=== PATIENT | male | born 1965 | race Caucasian/White ===

== ENCOUNTER 2019-06-08 20:57 | Emergency (ER) | payer OTHER ==
[~2019-06-08 20:57] MED LIST: THIAMINE 100 MG TAB PO SCH
[2019-06-08 21:16] VITALS: RESP 18; TEMP 99.7
[2019-06-08] MEDS ORDERED: LORazepam 2 MG/ML INJ IV PRN ×3 (21:21)
[2019-06-08] MEDS ORDERED: THIAMINE 100 MG/ML 2 ML VIAL IM STA (21:21)
[2019-06-08 21:41] LABS: Basophils # (A) 0.1 k/uL (0-0.2); Basophils % (A) 1 %; Eosinophils # (A) 0.1 k/uL (0-0.7); Eosinophils % (A) 2 %; HCT 49.4 % (39.0-53.0); Lymphocytes # (A) 2.2 k/uL (1.0-4.8); Lymphocytes % (A) 34 %; MCH 34.4 pg (25.0-35.0); MCHC 34.3 g/dL (31.0-37.0); Mean Platelet Volume 7.6; Monocytes # (A) 0.5 k/uL (0-1.0); Monocytes % (A) 8 %; Neutrophils # (A) 3.3 k/uL (1.3-7.7); Neutrophils % (A) 52 %; Platelet Count 207 k/uL (150-450); RBC 4.94 m/uL (4.30-5.90); RDW 13.2 % (11.5-15.5); WBC 6.4 k/uL (3.8-10.6)
[2019-06-08 21:42] LABS: Appearance,Urine Clear (Clear); Bilirubin,Urine Negative (Negative); Blood,Urine Negative (Negative); Color,Urine Yellow; Glucose,Urine (UA) Negative (Negative); Ketones,Urine Negative (Negative); Leukocyte Esterase,Urine Negative (Negative); Nitrite,Urine Negative (Negative); PH, Urine 5.5 (5.0-8.0); Protein,Urine Negative (Negative); Specific Gravity,Urine 1.004 (1.001-1.035); Urobilinogen,Urine <2.0 mg/dL (<2.0)
[2019-06-08 21:51] LABS: ALT 17 U/L (4-49); AST 31 U/L (17-59); African American GFR (CKD) >90 (>60 ml/min/1.73 sqM); Albumin 4.2 g/dL (3.5-5.0); Alkaline Phosphatase 122 U/L (38-126); Anion Gap 9 mmol/L; Blood Urea Nitrogen 5 mg/dL (9-20); Calcium 8.5 mg/dL (8.4-10.2); Carbon Dioxide 28 mmol/L (22-30); Chloride 104 mmol/L (98-107); Glucose 99 mg/dL (74-99); Magnesium 2.3 mg/dL (1.6-2.3); Non-African American GFR(CKD) >90 (>60 ml/min/1.73 sqM); Phosphorus 3.5 mg/dL (2.5-4.5); Potassium 4.1 mmol/L (3.5-5.1); Sodium 141 mmol/L (137-145); Total Bilirubin 1.2 mg/dL (0.2-1.3); Total Protein 7.6 g/dL (6.3-8.2)
[2019-06-08 21:53] LABS: Alcohol 292 mg/dL
[2019-06-08 22:01] LABS: Amphetamine Screen,Urine Not Detected (NotDetected); Barbiturate Screen,Urine Not Detected (NotDetected); Benzodiazepines Screen,Urine Not Detected (NotDetected); Cocaine Screen,Urine Not Detected (NotDetected); Methadone Screen, Urine Not Detected (NotDetected); Opiate Screen,Urine Not Detected (NotDetected); Oxycodone Screen, Urine Not Detected (NotDetected); Phencyclidine Screen,Urine Not Detected (NotDetected); Tricyclic Antidepressant,Urine Not Detected (NotDetected); Urn Cannabinoid Scrn Detected (NotDetected)
--- NOTE | 2019-06-08 22:02 | XR ---
EXAMINATION TYPE: XR chest 2V DATE OF EXAM: 06/08/2019 COMPARISON: None HISTORY: 54-year-old male with fall and pain TECHNIQUE: AP and lateral views FINDINGS: Heart normal size. Aorta and pulmonary vasculature within normal limits. Mild interstitial prominence as a chronic appearance. No consolidation, pneumothorax, or pleural effusion. There is elevation of the distal right clavicle in relation to the acromion. IMPRESSION: 1. Chronic appearing changes. No definite acute process seen. 2. Offset at the right AC joint suggests age indeterminate AC joint injury. Correlate for any focal p ain here.
[2019-06-08 22:03] VITALS: BP 149/94; PULSE 77
--- NOTE | 2019-06-08 22:07 | CT ---
EXAMINATION TYPE: CT brain destiny mascorro con DATE OF EXAM: 06/08/2019 COMPARISON: None HISTORY: 54-year-old male weakness, history of fall, EtOH. Family hx stroke. CT DLP: 1485.6 mGycm Automated exposure control for dose reduction was used. Technique: Examination of the head was done in axial plane without intravenous contrast. Coronal and sagittal reconstructions performed. CT of the cervical spine was obtained in axial plane without intravenous injection of contrast mater ial. Coronal and sagittal reformatted images were obtained from the axial views for evaluation of f ractures, spinal alignment and canal. FINDINGS: Head: There is no evidence of acute intracranial hemorrhage, acute ischemic changes, mass, mass-effect, or extra-axial fluid collection. There is no effacement of cerebral sulci or basal subarachnoid cister ns. There is no hydrocephalus. There is no midline shift. Kumari-white matter distinction is preserv ed. Mild mucosal thickening ethmoid air cells. Orbits and globes appear intact. Mastoid air cells are wel l pneumatized. Cervical spine: 1.5 cm cyst right maxilla likely a dentigerous cyst. This can be correlated with a dental exam. No cr anial cervical junction abnormality, predental space widening, or prevertebral soft tissue swelling. Congenital vertebral body fusion of C6/C7. No acute fracture. Alignment is maintained and there is straightening of the normal cervical lordosis . Mild multilevel degenerative disc disease. Hypertrophic facet arthropathy and uncovertebral joint art hropathy throughout.. Suspected levels of mild spinal canal narrowing throughout. Assessment of the spinal canal from C5 an d below is limited due to artifact from patient's shoulders. Mild left neural foraminal stenosis at C2-C3, both sides at C3-C4, moderate to severe left and C4-C5 and on the right and C5-C6. Old healed left midclavicular shaft fracture deformity Sagittal and coronal reformatted images confirm above findings. COMBINED IMPRESSION: 1. No acute intracranial abnormality seen. 2. No acute fracture or malalignment of the cervical spine. Moderate spondylotic change. Congenital v ertebral body fusion at C6/C7. Variable neural foraminal stenoses as outlined above. 3. A 1.5 cm cystic lesion of the right maxilla, likely a dentigerous cyst which can be correlated wit h a dental exam.
--- NOTE | 2019-06-08 22:08 | XR ---
EXAMINATION TYPE: XR lumbar spine 2 or 3V DATE OF EXAM: 06/08/2019 COMPARISON: NONE HISTORY: Low back pain TECHNIQUE: 3 views FINDINGS: Vertebra have normal alignment. There is narrowing at L5-S1 disc with spurring and sclerosi s. The other disc spaces are fairly normal. Posterior elements are intact. There is some sclerosis at the left sacroiliac joint. There is no compression fracture. IMPRESSION: Spondylosis at L5-S1. There is sclerosis at the sacroiliac joints more on the left side t hat could relate to some sacroiliitis.
--- NOTE | 2019-06-08 22:10 | XR ---
EXAMINATION TYPE: XR wrist complete BILATERAL DATE OF EXAM: 06/08/2019 COMPARISON: NONE HISTORY: 54-year-old male with fall and bilateral wrist pain TECHNIQUE: 4 views each side FINDINGS: A corticated ossific density adjacent to the right ulnar styloid process. This could represent a mission support specialist sylw[place] nonunited fracture fragment from remote injury or accessory ossicle. Faint TFC calcifications on the left. The radiocarpal and distal radioulnar joints as well as the midcarpal compartment appear in tact on both sides. No acute fracture, subluxation, or dislocation seen. Mild soft tissue swelling at the left wrist. IMPRESSION: Mild soft tissue swelling at the left wrist. No acute osseous abnormality seen.
--- NOTE | 2019-06-08 22:13 | ED ---
Extremity Problem HPI - General Chief complaint: Extremity Problem,Nontraumatic Stated complaint: etoh,hypertension Time Seen by Provider: 06/08/19 21:03 Source: patient, family, EMS Mode of arrival: EMS Limitations: no limitations - History of Present Illness Initial comments: 54yo male with history of daily ETOH abuse, HTN presenting today for cc of b ilateral wrist pain. Patient states that he has had pain the hands today, he states he has family history of stroke and is not sure if this is a sign. Family member has also noted tremor of the UE, beside denies slurred speech. Patient states he did trip today but denies hitting head, SMYTH, nausea, vomiting, neck pain, or back pain. Patient denies trauma to the hands, the states he "knows theyre not broken". Patient states he has "felt like shit" for months, denies any specific symptoms. Denies chest pain or SOB. Patient denies visual changes. Patient states at time he has pain in his right leg. Patient denies any weakness or loss of sensation of the UE or LE. States he has known degenerative changes of the neck. Patient states he presented today for the pain of wrist/hands. States the wrist pain has been ongoing for months and the pain in the knuckle has been ongoing for the past day. Patient states when he bends at all 5 knuckles of the hands b/l it hurts, but is not weak. Remaining ROS (-). Upon arrival patient is AAOx3 does not appears acute intoxicated, but does smell of alcohol. beside. - Related Data Allergies Allergy/AdvReac Type Severity Reaction Status Date / Time No Known Allergies Allergy Verified 06/08/19 22:00 Review of Systems ROS Statement: Those systems with pertinent positive or pertinent negative responses have been documented in the HPI. ROS Other: All systems not noted in ROS Statement are negative. Past Medical History Past Medical History: COPD, Hypertension History of Any Multi-Drug Resistant Organisms: None Reported Past Surgical History: Hernia Repair, Orthopedic Surgery Additional Past Surgical History / Comment(s): L ankle surgery, testicular torsion 2014 Past Psychological History: No Psychological Hx Reported Smoking Status: Current every day smoker Past Alcohol Use History: Abuse Past Drug Use History: Marijuana General Exam - General Exam Comments Initial Comments: General: The patient is awake and alert, in no distress, and does not appear acutely ill. Smells of alcohol Eye: +3 mm pupils are equal, round and reactive to light, extra-ocular movements are intact. No nystagmus. There is normal conjunctiva bilaterally. No signs of icterus. Ears, nose, mouth and throat: There are moist mucous membranes and no oral lesions. rhinophyma noted. Neck: The neck is supple, there is no tenderness or JVD. No midline or paraspinal tenderness to palpation. Full ROM without tenderness of the cervical spine. Cardiovascular: There is a regular rate and rhythm. No murmur, rub or gallop is appreciated. Respiratory: Lungs are clear to auscultation, respirations are non-labored, breath sounds are equal. No wheezes, stridor, rales, or rhonchi. Gastrointestinal: Soft, non-distended, non-tender abdomen without masses or organomegaly noted. There is no rebound or guarding present. No CVA tenderness. Bowel sounds are unremarkable. Musculoskeletal: Normal ROM, no tenderness of the UE and LE b/l however there is pain at the MCP joints of all 5 digits of the hands b/l no swelling, no abrasions, . Strength 5/5 of the UE and LE b/l. Sensation intact of the UE and LE b/l. Radial pulses equal bilaterally 2+. No LE edema. No swelling of the hands. Neurological: A&O x 3. CN II-XII intact, memory intact to immediately, i ntermediate and intermediate project manager recall. Able to follow simple verbal. Able to name a common object. High quality, labial (pa) and lingual (la) speech. Low quality posterior pharynx/larynx (ga) voice sounds. Able to express general knowledge (days in a week). No hemineglect or inattention noted. Finger agnosia (-) and spatially oriented (identified L index finger touched R shoulder with L index finger). . Light touch sensation present over the face, chest, abdomen, back, UE bilaterally, and LE bilaterally. Able to localize point during point localization b/l and extinction. No visible bulk atrophy, hypertrophy, fasciculations, or myoclonus of the UE or LE b/l. Full PROM in UE and LE b/l. Bilateral muscle strength 5/5 for the following muscles: deltoid, biceps, triceps, brachioradialis, wrist extensors/flexor, hip flexor, hip abductors/adductors, hamstrings, quadriceps, feet dorsiflexors/plantar flexors. Finger to nose, finger to the examiners finger, and heel to masters coordinated and accurate b/l. Coordinated and even demonstration of hand flip. Gait is coordinated and even in stride. (-) pronator drift. No nuchal rigidity. Psychiatric: Cooperative, appropriate mood & affect, normal judgment. Limitations: no limitations Course Vital Signs 06/08/19 06/08/19 06/08/19 21:00 21:20 22:03 Temperature 99.7 F H 99.7 F H Pulse Rate 85 77 Respiratory 18 18 Rate Blood Pressure 142/100 149/94 O2 Sat by Pulse 97 95 Oximetry - Reevaluation(s) Reevaluation #1: Refused XR of hands, initially xr of wrists was obtained, patient was not complaining of hand pain. states she just wants to take him home. Refuses XR of hand. 06/08/19 Medical Decision Making - Medical Decision Making 54yo male presenting for complaints of b/l hand and wrist pain. Does no appear overtly intoxicated but smell of alcohol. Patient neurovascularly intact on examination. No focal neurological deficits. Patient labs stable no electrolyte derrangements. Patient has known cervical disease, states he did trip today but adamantly denies head injury. states she doesnt believe he has. Patient has no evidence of head trauma on exam. There is noted rhinophyma. Patient blood alcohol elevated, states this is his typical states-daily drinker. After imaging studies revealed no acute process (the right shoulder is an old collar bone injury no new trauma) nor laboratory studies that they would both like to go home. Patient beside removed IV, patient put clothes on and began to leave. Troponin results (-) Pt denied chest pain SOB. After discussing case and reviewing EKG with attending we feel patient is stable for discharge with PCP f/u as discussed as well as return parameters. Patient verbalized understanding and patient discharged appearing well. - Lab Data Result diagrams: 06/08/19 21:30 06/08/19 21:30 Lab Results 06/08/19 06/08/19 06/08/19 Range/Units 21:30 21:30 21:30 WBC 6.4 (3.8-10.6) k/uL RBC 4.94 (4.30-5.90) m/uL Hgb 17.0 (13.0-17.5) gm/dL Hct 49.4 (39.0-53.0) % MCV 100.0 (80.0-100.0) fL MCH 34.4 (25.0-35.0) pg MCHC 34.3 (31.0-37.0) g/dL RDW 13.2 (11.5-15.5) % Plt Count 207 (150-450) k/uL Neutrophils % 52 % Lymphocytes % 34 % Monocytes % 8 % Eosinophils % 2 % Basophils % 1 % Neutrophils # 3.3 (1.3-7.7) k/uL Lymphocytes # 2.2 (1.0-4.8) k/uL Monocytes # 0.5 (0-1.0) k/uL Eosinophils # 0.1 (0-0.7) k/uL Basophils # 0.1 (0-0.2) k/uL Sodium 141 (137-145) mmol/L Potassium 4.1 (3.5-5.1) mmol/L Chloride 104 (98-107) mmol/L Carbon Dioxide 28 (22-30) mmol/L Anion Gap 9 mmol/L BUN 5 L (9-20) mg/dL Creatinine 0.83 (0.66-1.25) mg/dL Est GFR (CKD-EPI)AfAm >90 (>60 ml/min/1.73 sqM) Est GFR (CKD-EPI)NonAf >90 (>60 ml/min/1.73 sqM) Glucose 99 (74-99) mg/dL Calcium 8.5 (8.4-10.2) mg/dL Phosphorus 3.5 (2.5-4.5) mg/dL Magnesium 2.3 (1.6-2.3) mg/dL Total Bilirubin 1.2 (0.2-1.3) mg/dL AST 31 (17-59) U/L ALT 17 (4-49) U/L Alkaline Phosphatase 122 (38-126) U/L Troponin I (0.000-0.034) ng/mL Total Protein 7.6 (6.3-8.2) g/dL Albumin 4.2 (3.5-5.0) g/dL Lipase 137 (23-300) U/L Urine Color Yellow Urine Appearance Clear (Clear) Urine pH 5.5 (5.0-8.0) Ur Specific Drew 1.004 (1.001-1.035) Urine Protein Negative (Negative) Urine Glucose (UA) Negative (Negative) Urine Ketones Negative (Negative) Urine Blood Negative (Negative) Urine Nitrite Negative (Negative) Urine Bilirubin Negative (Negative) Urine Urobilinogen <2.0 (<2.0) mg/dL Ur Leukocyte Esterase Negative (Negative) Urine Opiates Screen Not Detected (NotDetected) Ur Oxycodone Screen Not Detected (NotDetected) Urine Methadone Screen Not Detected (NotDetected) Ur Propoxyphene Screen Not Detected (NotDetected) Ur Barbiturates Screen Not Detected (NotDetected) U Tricyclic Antidepress Not Detected (NotDetected) Ur Phencyclidine Scrn Not Detected (NotDetected) Ur Amphetamines Screen Not Detected (NotDetected) U Methamphetamines Scrn Not Detected (NotDetected) U Benzodiazepines Scrn Not Detected (NotDetected) Urine Cocaine Screen Not Detected (NotDetected) U Marijuana (THC) Screen Detected H (NotDetected) Serum Alcohol 292 H* mg/dL 06/08/19 Range/Units 21:30 WBC (3.8-10.6) k/uL RBC (4.30-5.90) m/uL Hgb (13.0-17.5) gm/dL Hct (39.0-53.0) % MCV (80.0-100.0) fL MCH (25.0-35.0) pg MCHC (31.0-37.0) g/dL RDW (11.5-15.5) % Plt Count (150-450) k/uL Neutrophils % % Lymphocytes % % Monocytes % % Eosinophils % % Basophils % % Neutrophils # (1.3-7.7) k/uL Lymphocytes # (1.0-4.8) k/uL Monocytes # (0-1.0) k/uL Eosinophils # (0-0.7) k/uL Basophils # (0-0.2) k/uL Sodium (137-145) mmol/L Potassium (3.5-5.1) mmol/L Chloride (98-107) mmol/L Carbon Dioxide (22-30) mmol/L Anion Gap mmol/L BUN (9-20) mg/dL Creatinine (0.66-1.25) mg/dL Est GFR (CKD-EPI)AfAm (>60 ml/min/1.73 sqM) Est GFR (CKD-EPI)NonAf (>60 ml/min/1.73 sqM) Glucose (74-99) mg/dL Calcium (8.4-10.2) mg/dL Phosphorus (2.5-4.5) mg/dL Magnesium (1.6-2.3) mg/dL Total Bilirubin (0.2-1.3) mg/dL AST (17-59) U/L ALT (4-49) U/L Alkaline Phosphatase (38-126) U/L Troponin I <0.012 (0.000-0.034) ng/mL Total Protein (6.3-8.2) g/dL Albumin (3.5-5.0) g/dL Lipase (23-300) U/L Urine Color Urine Appearance (Clear) Urine pH (5.0-8.0) Ur Specific Drew (1.001-1.035) Urine Protein (Negative) Urine Glucose (UA) (Negative) Urine Ketones (Negative) Urine Blood (Negative) Urine Nitrite (Negative) Urine Bilirubin (Negative) Urine Urobilinogen (<2.0) mg/dL Ur Leukocyte Esterase (Negative) Urine Opiates Screen (NotDetected) Ur Oxycodone Screen (NotDetected) Urine Methadone Screen (NotDetected) Ur Propoxyphene Screen (NotDetected) Ur Barbiturates Screen (NotDetected) U Tricyclic Antidepress (NotDetected) Ur Phencyclidine Scrn (NotDetected) Ur Amphetamines Screen (NotDetected) U Methamphetamines Scrn (NotDetected) U Benzodiazepines Scrn (NotDetected) Urine Cocaine Screen (NotDetected) U Marijuana (THC) Screen (NotDetected) Serum Alcohol mg/dL Disposition Clinical Impression: Alcohol intoxication, Bilateral hand pain, Bilateral wrist pain, Cervical spinal stenosis Disposition: HOME SELF-CARE Condition: Good Instructions (If sedation given, give patient instructions): Alcohol Intoxication (ED), Cervical Radiculopathy (ED) Additional Instructions: Please use medication as discussed. Please follow-up with family doctor in the next 2 days. Please return to emergency room if the symptoms increase or worsen or for any other concerns. Is patient prescribed a controlled substance at d/c from ED?: No Referrals: None,Stated [Primary Care Provider] - 1-2 days [facility] - 1-2 days Time of Disposition: 22:35
== END 2019-06-08 22:45 | disposition home or self-care (01) ==
LOC: EC 20:57
DX: M48.02 Spinal stenosis, cervical region (principal); F10.129 Alcohol abuse with intoxication, unspecified; L71.1 Rhinophyma; M79.604 Pain in right leg; M47.812 Spondylosis without myelopathy or radiculopathy, cervical region; F17.200 Nicotine dependence, unspecified, uncomplicated; Z87.828 Personal history of other (healed) physical injury and trauma; Y90.8 Blood alcohol level of 240 mg/100 ml or more; Z53.20 Procedure and treatment not carried out because of patient's decision for unspecified reasons
CPT/HCPCS: 99285; 96372; 36415; 80053; 83690; 83735; 84100; 84484; 85025; 81003; 80306; 73110; 72100; 71046; 72125; 70450; G0480; J3411; 80320

== ENCOUNTER → 2023-11-17 | Outpatient (CLI) | payer OTHER ==
--- NOTE | 2023-11-17 12:24 | FL ---
Exam Date: 11/17/2023 11:48 AM. Modified barium swallow for dysphagia. Consistencies administered: Various consistency of barium. Fluoro time: 46 seconds No images were sent to PACS. Please see speech pathology report. DAP: not reported mGym2 Gycm2
== END ==
LOC: RADFLMAIN 11:10
PROVIDERS: ATTEND Internal Medicine Gastroenterology
DX: R13.10 Dysphagia, unspecified (principal)
CPT/HCPCS: 74230